=== PATIENT | male | born 1950 | race Caucasian/White ===

== ENCOUNTER 2019-07-09 09:43 | Emergency (ER) | payer MEDICARE, MEDICAID ==
[~2019-07-09] VITALS: Ht 170.2 cm; Wt 75.0 kg
[2019-07-09] MEDS ORDERED: MAGNESIUM/ALUMINUM HYDROXIDE/SIMETHICONE 30ML UDC PO STA (10:59)
[2019-07-09] MEDS ORDERED: VISCOUS LIDOCAINE 2% 15 ML UDC PO STA (10:59)
[2019-07-09] MEDS ORDERED: DICYCLOMINE 10 MG/5 ML ORAL SYR PO STA (10:59)
[2019-07-09] MEDS ORDERED: ONDANSETRON 4MG ODT PO STA (10:59)
[2019-07-09] MEDS ORDERED: ACETAMINOPHEN 325MG TABLET PO STA (10:59)
[2019-07-09 11:21] LABS: CHLORIDE 108 mEq/L (98-107)
[2019-07-09 11:29] LABS: BASOPHILS % 0.4 % (0.0-2.0); EOSINOPHILS % 0.7 % (0.0-5.0); HEMATOCRIT. 45.8 % (42.0-52.0); HEMOGLOBIN. 15.8 g/dL (14.0-18.0); MEAN CORPUSCULAR HEMOGLOBIN 32.2 pg (28.0-32.0); MEAN CORPUSCULAR VOLUME 93.5 fL (80.0-94.0); MEAN PLATELET VOLUME 8.3 fl (7.4-10.4); MONOCYTES % 10.4 % (2.0-8.0); NEUTROPHILS % 66.5 % (40.0-76.0); PLATELET 181 x1000/uL (130-400); RED CELL DISTRIBUTION WIDTH 14.7 % (11.6-14.6)
[2019-07-09 12:22] VITALS: BP 148/74
== END 2019-07-09 12:23 | disposition home or self-care (01) ==
LOC: ER 09:43
DX: K21.9 Gastro-esophageal reflux disease without esophagitis (principal); R53.1 Weakness; R03.0 Elevated blood-pressure reading, without diagnosis of hypertension
CPT/HCPCS: 36415; 80053; 85025; 99284; Q0162

== ENCOUNTER 2019-07-31 12:24 | Emergency (ER) | payer MEDICAID, MEDICARE ==
[~2019-07-31] VITALS: Ht 170.2 cm; Wt 73.0 kg
[2019-07-31] MEDS ORDERED: FAMOTIDINE 20MG/2ML VIAL IV STA (13:07)
[2019-07-31] MEDS ORDERED: ONDANSETRON HCL 4MG/2ML INJ IV STA (13:07)
[2019-07-31] MEDS ORDERED: ENALAPRIL 2.5MG/2ML VIAL 2ML IV ONE (13:15)
[2019-07-31] MEDS ORDERED: TETANUS, DIPHTHERIA, PERTUSSIS VAC/PF 0.5ML (>7YR OLD) IM ONE (13:30)
[2019-07-31] MEDS ORDERED: ENALAPRIL 1.25MG/ML VIAL 1ML IV ONE (14:45)
[2019-07-31 14:59] LABS: BASOPHILS % 0.3 % (0.0-2.0); EOSINOPHILS % 0.5 % (0.0-5.0); HEMATOCRIT. 49.3 % (42.0-52.0); HEMOGLOBIN. 16.7 g/dL (14.0-18.0); LYMPHOCYTES % 19.9 % (20.0-50.0); MEAN CORPUSCULAR HEMOGLOBIN 32.4 pg (28.0-32.0); MEAN CORPUSCULAR VOLUME 95.5 fL (80.0-94.0); MEAN PLATELET VOLUME 9.1 fl (7.4-10.4); MONOCYTES % 10.2 % (2.0-8.0); NEUTROPHILS % 69.1 % (40.0-76.0); PLATELET 183 x1000/uL (130-400); RED BLOOD CELL COUNT 5.16 mill/uL (4.7-6.1); RED CELL DISTRIBUTION WIDTH 14.4 % (11.6-14.6)
[2019-07-31 15:02] LABS: INR 1.1; PROTHROMBIN TIME 10.8 sec (9.6-11.0)
[2019-07-31 15:31] LABS: CHLORIDE 107 mEq/L (98-107)
[2019-07-31 15:40] LABS: ETHANOL BLOOD < 10 mg/dL
[2019-07-31 16:45] VITALS: BP 182/90
== END 2019-07-31 16:51 | disposition home or self-care (01) ==
LOC: ER 14:10
DX: S81.851D Open bite, right lower leg, subsequent encounter (principal); I10 Essential (primary) hypertension; R51 Headache; R10.13 Epigastric pain; Z87.19 Personal history of other diseases of the digestive system; W54.0XXD Bitten by dog, subsequent encounter
CPT/HCPCS: 36415; 70450; 80053; 80320; 83690; 85025; 85610; 90471; 90715; 93005; 96374; 96375; 99284; J2405; J3490; G0480

== ENCOUNTER 2020-09-16 12:49 | Emergency (ER) | payer MEDICARE, MEDICAID ==
[~2020-09-16] VITALS: Ht 167.6 cm; Wt 70.0 kg
[2020-09-16 14:36] LABS: BASOPHILS % 0.3 % (0.0-2.0); EOSINOPHILS % 0.6 % (0.0-5.0); HEMATOCRIT. 43.9 % (42.0-52.0); HEMOGLOBIN. 15.2 g/dL (14.0-18.0); LYMPHOCYTES % 19.4 % (20.0-50.0); MEAN CORPUSCULAR VOLUME 95.2 fL (80.0-94.0); MEAN PLATELET VOLUME 9.7 fl (7.4-10.4); MONOCYTES % 10.3 % (2.0-8.0); NEUTROPHILS % 69.4 % (40.0-76.0); PLATELET 172 x1000/uL (130-400); RED BLOOD CELL COUNT 4.61 mill/uL (4.7-6.1); RED CELL DISTRIBUTION WIDTH 13.5 % (11.6-14.6)
[2020-09-16 14:38] LABS: CHLORIDE 108 mEq/L (98-107)
[2020-09-16 14:42] LABS: ETHANOL BLOOD < 10 mg/dL
[2020-09-16] MEDS ORDERED: KCL 10MEQ/50ML PREMIX 50 ML IV ONE (16:30)
[2020-09-16 16:42] LABS: CLARITY URINE CLEAR (CLEAR); COLOR URINE YELLOW (YELLOW); KETONES URINE TRACE (NEGATIVE); LEUKOCYTE ESTERASE URINE TRACE (NEGATIVE); NITRITE URINE NEGATIVE (NEGATIVE); OCCULT BLOOD URINE NEGATIVE (NEGATIVE); PROTEIN URINE NEGATIVE (NEGATIVE); SPECIFIC GRAVITY URINE 1.016 (1.005-1.030); UROBILINOGEN URINE 0.2 E.U./dL (0.2-1.0)
[2020-09-16 16:57] LABS: *AMPHETAMINES SCREEN URINE NEGATIVE (NEGATIVE)
[2020-09-16 16:58] LABS: *BARBITURATES SCREEN URINE NEGATIVE (NEGATIVE); *BENZODIAZEPINES SCREEN URINE NEGATIVE (NEGATIVE); *COCAINE SCREEN URINE NEGATIVE (NEGATIVE); CANNABINOID URINE SCREEN NEGATIVE (NEGATIVE); METHADONE URINE SCREEN NEGATIVE (NEGATIVE); OPIATES URINE SCREEN NEGATIVE (NEGATIVE); PHENCYCLIDINE URINE SCREEN NEGATIVE (NEGATIVE)
[2020-09-16] MEDS ORDERED: POTASSIUM CHLORIDE 10MEQ TABLET SR PO ONE (17:45)
[2020-09-16] MEDS ORDERED: CEFTRIAXONE 1 G PREMIX 50 ML IV ONE (18:15)
[2020-09-17 09:10] VITALS: BP 123/70
== END 2020-09-17 09:07 | disposition short-term general hospital (02) ==
LOC: ER 13:08
DX: R53.1 Weakness (principal); E87.6 Hypokalemia; I10 Essential (primary) hypertension; Z98.890 Other specified postprocedural states; Z20.828 Contact with and (suspected) exposure to other viral communicable diseases
CPT/HCPCS: 36415; 70450; 71045; 80053; 80305; 80320; 81003; 84484; 85025; 86850; 86900; 86901; 87426; 93005; 96365; 99285; J0696; J3480; G0480

== ENCOUNTER 2021-03-23 08:28 | Emergency (ER) | payer MEDICARE, MEDICAID ==
[~2021-03-23] VITALS: Ht 160 cm; Wt 77.0 kg
[2021-03-23 08:31] VITALS: BP 182/84
[2021-03-23] MEDS ORDERED: ACETAMINOPHEN 325MG TABLET PO ONE (08:45)
[2021-03-23] MEDS ORDERED: OFLO5DRO4 LEFT EAR (08:45)
[2021-03-23] MEDS ORDERED: TOPUD PO (08:45)
== END 2021-03-23 08:59 | disposition home or self-care (01) ==
LOC: ER 08:28
DX: H60.92 Unspecified otitis externa, left ear (principal); I10 Essential (primary) hypertension
CPT/HCPCS: 99282

== ENCOUNTER 2021-06-19 08:59 | Emergency (ER) | payer MEDICARE, MEDICAID ==
[~2021-06-19] VITALS: Ht 165.1 cm; Wt 76.0 kg
[~2021-06-19 08:59] MED LIST: OFLO5DRO4 LEFT EAR; TOPUD PO
[2021-06-19 10:03] LABS: BASOPHILS % 0.3 % (0.0-2.0); EOSINOPHILS % 0.8 % (0.0-5.0); HEMATOCRIT. 46.2 % (42.0-52.0); HEMOGLOBIN. 15.7 g/dL (14.0-18.0); LYMPHOCYTES % 17.8 % (20.0-50.0); MEAN CORPUSCULAR HEMOGLOBIN 31.7 pg (28.0-32.0); MEAN CORPUSCULAR VOLUME 93.2 fL (80.0-94.0); MEAN PLATELET VOLUME 8.2 fl (7.4-10.4); MONOCYTES % 11.4 % (2.0-8.0); NEUTROPHILS % 69.7 % (40.0-76.0); PLATELET 162 x1000/uL (130-400); RED BLOOD CELL COUNT 4.96 mill/uL (4.7-6.1)
[2021-06-19 10:07] LABS: CHLORIDE 105 mEq/L (98-107)
[2021-06-19 12:57] LABS: CLARITY URINE CLEAR (CLEAR); COLOR URINE YELLOW (YELLOW); KETONES URINE NEGATIVE (NEGATIVE); LEUKOCYTE ESTERASE URINE NEGATIVE (NEGATIVE); NITRITE URINE NEGATIVE (NEGATIVE); OCCULT BLOOD URINE NEGATIVE (NEGATIVE); PH URINE 5.5 (4.5-8.0); PROTEIN URINE NEGATIVE (NEGATIVE)
[2021-06-19 14:14] VITALS: BP 134/74
== END 2021-06-19 15:16 | disposition home or self-care (01) ==
LOC: ER 09:53
DX: R51.9 Headache, unspecified (principal); I10 Essential (primary) hypertension; Z98.890 Other specified postprocedural states; Z86.73 Personal history of transient ischemic attack (TIA), and cerebral infarction without residual deficits
CPT/HCPCS: 36415; 71045; 80053; 81003; 84484; 85025; 99284